=== PATIENT | female | born 1990 | race Two or more races ===

== ENCOUNTER 2018-01-17 11:19 | Emergency (ER) | payer SELFPAY ==
[2018-01-17 11:23] VITALS: BP 100/59; BMI 21.7
--- NOTE | 2018-01-17 11:42 | ED.ABDFE ---
HPI - Time seen Time seen: 11:40 - PCP Primary Care Physician: SHIRLEYD - Complaint Chief Complaint:: PT C/O EPIGASTRIC PAIN WITH NAUSEA, DIZZINESS, AND HEADACHE. PT DESCRIBES HER PAIN A THROBBING TYPE PAIN THAT HAS BEEN GOING ON FOR 3-4 DAYS. PT STATES SHE HAS NOT VOMITTED ANY. - Nurses notes reviewed Nurses Notes Review: Yes - Source History Provided: Patient - Mode of arrival Mode of Arrival: Ambulatory - Timing Onset of Chief Complaint: 01/14/18 Came on: Suddenly - Duration Duration: Constant Duration: Days - Severity Severity: Moderate - Quality Quality: Sharp - Context Onset: Suddenly - Modifying Worsening Factors: Nothing Improving Factors: Nothing - Associated signs and symptoms Associated Signs and Symptoms: Nausea PMH - PMH Past Medical History: No Past Surgical History: No - Family History History of Family Medical Conditions: No - Social History Does any household member use tobacco: No Alcohol Use: None Do you use any recreational Drugs:: No Lives With: Family Lives Where: Home - infectious screening In the last 2 months have you had wt loss of >10#?: NO Have you had fever, night sweats or hemotysis?: No Have you traveled outside the country in the last 6 months?: No Isolation: Standard ROS - Review of Systems Constitutional: No Symptoms Reported Eyes: No Symptoms Reported ENTM: No Symptoms Reported Respiratoy: No Symptoms Reported Cardiovascular: No Symptoms Reported Gastrointestinal/Abdominal: Abdominal Pain Genitourinary: No Symptoms Reported Neurological: No Symptoms Reported Musculoskeletal: No Symptoms Reported Integumentary: No Symptoms Reported Hematologic/Lymphatic: No Symptoms Reported Endocrine: No Symptoms Reported All Other Systems: Reviewed and Negative PE - Vital Signs Vitals: Temperature 98.7 F Pulse Rate 72 Respiratory Rate 18 Blood Pressure 100/59 O2 Sat by Pulse Oximetry 100 - General Limitations: No Limitations General Appearance: Alert - Head Head Exam: Normal Inspection - Eyes Eye exam: Normal Appearance - ENT ENT Exam: Normal External Ear Exam - Neck Neck Exam: Normal Inspection - Chest Chest Inspection: Symmetric Chest Wall Rise - Respiratory Respiratory Exam: Normal Lung Sounds Bilat Respiratory Exam: Bilateral Clear to Auscultation - Cardiovascular Cardiovascular Exam: Regular Rate, Normal Rhythm, Normal Heart Sounds - Abdominal Exam Abdominal Exam: Normal Bowel Sounds, Soft - Rectal Rectal Exam: Deferred - Back Back Exam: Normal Inspection - Extremeties Extremities Exam: Normal Inspection - External Exam: Female: Deferred : Speculum Exam (Female): Deferred : Bimanual Exam (female): Deferred - Neurologic Neurological Exam: Alert, Oriented X3 - Psychiatric Psychiatric Exam: Normal Affect, Normal Mood - Skin Skin Exam: Normal Color MDM - Differential Diagnosis Differential Diagnosis- Considerations may include:: Esophagitis, Gastritus/PUD , Ovarian cyst/torsion, Urinary tract infection, Urolithiasis Course - Treatment Treatment: SEE ORDERS - Education/Counseling Education/Counseling: Patient, Family, Education Educated On: Diagnosis, Needs for Follow Up ROR - Labs Reviewed Laboratory Results Reviewed?: Yes Result Diagrams: 01/17/18 12:00 01/17/18 12:00 Laboratory: WBC 6.2 X10^3/uL (3.6-10.0) 01/17/18 12:00 RBC 4.36 X10^6/uL (3.5-5.4) 01/17/18 12:00 Hgb 13.4 g/dL (12.0-16.0) 01/17/18 12:00 Hct 37.0 % (36.0-47.0) 01/17/18 12:00 MCV 85.0 fL (80.0-100.0) 01/17/18 12:00 MCH 30.7 pg (27.0-34.0) 01/17/18 12:00 MCHC 36.2 g/dL (33.0-35.0) H 01/17/18 12:00 RDW 12.7 % (11.6-16.5) 01/17/18 12:00 Plt Count 270 X10^3/uL (150.0-450.0) 01/17/18 12:00 MPV 6.8 fL (7.4-11.0) L 01/17/18 12:00 Neut % (Auto) 49.9 % (42.0-75.0) 01/17/18 12:00 Lymph % (Auto) 36.0 % (21.0-51.0) 01/17/18 12:00 [place] % (Auto) 11.2 % (0.0-13.0) 01/17/18 12:00 Eos % (Auto) 2.5 % (0.9-2.9) 01/17/18 12:00 Baso % (Auto) 0.4 % (0.2-1.0) 01/17/18 12:00 Neut # (Auto) 3.1 x10^3/uL (2.2-4.8) 01/17/18 12:00 Lymph # (Auto) 2.2 X10^3/uL (1.3-2.9) 01/17/18 12:00 [place] # (Auto) 0.7 x10^3/uL (0.3-0.8) 01/17/18 12:00 Eos # (Auto) 0.2 x10^3/uL (0.0-0.2) 01/17/18 12:00 Baso # (Auto) 0.0 X10^3/uL (0.0-0.1) 01/17/18 12:00 Absolute Nucleated RBC 0.0 /100WBC 01/17/18 12:00 Sodium 138 mmol/L (136-145) 01/17/18 12:00 Corrected Sodium TNP 01/17/18 12:00 Potassium 3.7 mmol/L (3.5-5.1) 01/17/18 12:00 Chloride 104 mmol/L (98-107) 01/17/18 12:00 Carbon Dioxide 25.1 mmol/L (21-32) 01/17/18 12:00 BUN 10 mg/dL (7-18) 01/17/18 12:00 Creatinine 0.71 mg/dL (0.55-1.02) 01/17/18 12:00 Est GFR (MDRD) Af Amer > 60 (>60) 01/17/18 12:00 Est GFR (MDRD) Non-Af > 60 (>60) 01/17/18 12:00 Glucose 96 mg/dL (65-99) 01/17/18 12:00 Calcium 8.7 mg/dL (8.5-10.1) 01/17/18 12:00 Corrected Calcium TNP 01/17/18 12:00 Total Bilirubin 0.30 mg/dL (0.2-1.0) 01/17/18 12:00 AST 15 Units/L (15-37) 01/17/18 12:00 ALT 25 Units/L (12-78) 01/17/18 12:00 Alkaline Phosphatase 44 Units/L (46-116) L 01/17/18 12:00 Total Protein 7.7 g/dL (6.4-8.2) 01/17/18 12:00 Albumin 3.9 g/dL (3.4-5.0) 01/17/18 12:00 Globulin 3.8 g/dL (2.5-4.5) 01/17/18 12:00 Albumin/Globulin Ratio 1.0 Ratio (1.1-2.1) L 01/17/18 12:00 Amylase 53 Units/L (25-115) 01/17/18 12:00 Lipase 127 Units/L (73-393) 01/17/18 12:00 HCG, Qual Positive >10 mIU/mL 01/17/18 12:00 HCG, Quant 234 mIU/mL (0-6) H 01/17/18 12:00 Specimen Type Random urine 01/17/18 11:49 Urine Color Yellow (YELLOW) 01/17/18 11:49 Urine Appearance Clear (CLEAR) 01/17/18 11:49 Urine pH 7.0 (5.0 - 8.0) 01/17/18 11:49 Ur Specific [place] 1.015 (1.000-1.030) 01/17/18 11:49 Urine Protein Negative (NEGATIVE) 01/17/18 11:49 Urine Glucose (UA) Negative (NEGATIVE) 01/17/18 11:49 Urine Ketones Negative (NEGATIVE) 01/17/18 11:49 Urine Occult Blood 1+ (NEGATIVE) 01/17/18 11:49 Urine Nitrite Negative (NEGATIVE) 01/17/18 11:49 Urine Bilirubin Negative (NEGATIVE) 01/17/18 11:49 Urine Urobilinogen Normal (NORMAL) 01/17/18 11:49 Ur Leukocyte Esterase 2+ (NEGATIVE) 01/17/18 11:49 Urine RBC 0-2 /HPF (NONE SEEN) 01/17/18 11:49 Urine WBC 3-5 /HPF (NONE SEEN) 01/17/18 11:49 Ur Squamous Epith Cells Many /HPF (NEGATIVE) 01/17/18 11:49 Amorphous Sediment 1+ /HPF (NEGATIVE) 01/17/18 11:49 Urine Bacteria 1+ /HPF (NEGATIVE) 01/17/18 11:49 Ur Culture Indicated? No/not indicated 01/17/18 11:49 H. pylori IgG Antibody Positive (NEGATIVE) A 01/17/18 12:00 - XRAY XRAY Interpreted by: Radiologist XRAY Findings: REPORT DISCUSS WITH PATIEN. - Diagnosis Discharge Problem: Abdominal pain affecting , Helicobacter pylori ab+ Qualifiers: Weeks of gestation: less than 8 weeks Qualified Code(s): Z3A.01 - Less than 8 weeks gestation of - Discharge Plan Disposition: HOME, SELF-CARE Condition: Stable - Follow ups/Referrals Follow ups/Referrals: BRIGID NEWELL [STAFF PHYSICIAN] - 3 days NFD,None [Primary Care Provider] - 1 week GREGORY NGUYỄN [STAFF PHYSICIAN] - 1 week - Instructions Instructions: Abdominal Pain During , [id number], First Trimester of , [id number], Pelvic Rest, Helicobacter Pylori Antibodies Test Additional Instructions: RETURN TO ED IF WORSE.
[2018-01-17 12:01] LABS: BILIRUBIN,URINE NEGATIVE (NEGATIVE); BLOOD/HEMOGLOBIN,URINE 1+ (NEGATIVE); GLUCOSE, URINE NEGATIVE (NEGATIVE); KETONES,URINE NEGATIVE (NEGATIVE); LEUKOCYTE ESTERASE ,URINE 2+ (NEGATIVE); NITRITES,URINE NEGATIVE (NEGATIVE); PROTEIN,URINE NEGATIVE (NEGATIVE); UROBILINOGEN,URINE NORMAL (NORMAL)
[2018-01-17 12:05] LABS: APPEARANCE,URINE CLEAR (CLEAR); COLOR,URINE YELLOW (YELLOW)
[2018-01-17 12:11] LABS: BASOPHILS % (AUTO) 0.4 % (0.2-1.0); EOSINOPHILS # (AUTO) 0.2 x10^3/uL (0.0-0.2); EOSINOPHILS % (AUTO) 2.5 % (0.9-2.9); HEMOGLOBIN 13.4 g/dL (12.0-16.0); LYMPHOCYTES # (AUTO) 2.2 X10^3/uL (1.3-2.9); MEAN CORPUSCULAR HEMOGLOBIN 30.7 pg (27.0-34.0); MEAN CORPUSCULAR HGB CONC 36.2 g/dL (33.0-35.0); MEAN PLATELET VOLUME 6.8 fL (7.4-11.0); MONOCYTES # (AUTO) 0.7 x10^3/uL (0.3-0.8); MONOCYTES % (AUTO) 11.2 % (0.0-13.0); NEUTROPHILS # (AUTO) 3.1 x10^3/uL (2.2-4.8); NEUTROPHILS % (AUTO) 49.9 % (42.0-75.0); PLATELET COUNT 270 X10^3/uL (150.0-450.0); RED BLOOD COUNT 4.36 X10^6/uL (3.5-5.4); RED CELL DISTRIBUTION WIDTH 12.7 % (11.6-16.5); WHITE BLOOD COUNT 6.2 X10^3/uL (3.6-10.0)
[2018-01-17 12:36] LABS: ALANINE AMINOTRANSFERASE 25 Units/L (12-78); ALBUMIN 3.9 g/dL (3.4-5.0); ALKALINE PHOSPHATASE 44 Units/L (46-116); AMYLASE 53 Units/L (25-115); ASPARTATE AMINO TRANSFERASE 15 Units/L (15-37); BLOOD UREA NITROGEN 10 mg/dL (7-18); CALCIUM 8.7 mg/dL (8.5-10.1); CARBON DIOXIDE 25.1 mmol/L (21-32); CHLORIDE 104 mmol/L (98-107); CREATININE 0.71 mg/dL (0.55-1.02); LIPASE 127 Units/L (73-393); SODIUM 138 mmol/L (136-145); TOTAL PROTEIN 7.7 g/dL (6.4-8.2); eGFR BLACK RACES > 60 (>60); eGFR NON BLACK RACES > 60 (>60)
[2018-01-17 12:40] LABS: AMORPHOUS SEDIMENT,UR 1+ /HPF (NEGATIVE); BACTERIA,URINE 1+ /HPF (NEGATIVE); RBC,URINE 0-2 /HPF (NONE SEEN); SQUAMOUS EPITHELIAL CELL,UR MANY /HPF (NEGATIVE)
[2018-01-17 12:51] LABS: SERUM PREGNANCY TEST, QUAL POSITIVE >10 mIU/mL
--- NOTE | 2018-01-17 16:24 | US ---
History: Positive test and abdominal pain. Exam: Pelvic ultrasound Comparison: None. Technique: Multiple grayscale and color flow Doppler images of the pelvis were obtained. Findings: LMP: December 10, 2017. Quantitative HC dated January 17, 2018. The uterus measures 6.0 x 4.3 x 6.4 cm. No obvious IUP. No evidence for myometrial masses or calcifi cations can be observed. The endometrial stripe is normal in size measuring 13 mm by my measurements . The right and left adnexa are unremarkable. The echotexture of the right and left ovaries are unr emarkable. The right and left ovaries are normal in size. The right ovary measures 2.8 x 1.7 x 2.8 c m. The left ovary measures 3.1 x 2.6 x 3.6 cm. A likely corpus luteum is seen within the left ovary. Small amount of simple appearing pelvic free fluid. IMPRESSION: No obvious gestational sac is seen. This may represent an early IUP. However, threatened and ectopic not entirely excluded. Recommend following serial beta HCGs and OBGYN consultation. Reported By:
== END 2018-01-17 15:59 | disposition home or self-care (01) ==
LOC: ER 11:28
DX: R10.13 Epigastric pain (principal); B96.81 Helicobacter pylori [H. pylori] as the cause of diseases classified elsewhere; Z3A.01 Less than 8 weeks gestation of pregnancy
CPT/HCPCS: 36415; 76801; 80053; 81001; 82150; 83690; 84702; 84703; 85025; 86677; 99282; 99284

== ENCOUNTER 2018-02-02 09:05 | Emergency (ER) | payer SELFPAY ==
[2018-02-02 09:15] VITALS: BP 105/63; BMI 24.7
[2018-02-02] MEDS ORDERED: NS 1000 ML 1,000 ML ONE (09:33)
[2018-02-02] MEDS ORDERED: PHENERGAN INJ 25 MG ONE (09:34)
--- NOTE | 2018-02-02 09:37 | ED.ABDFE ---
HPI - PCP Primary Care Physician: nfd - Complaint Chief Complaint:: pt stated she has been vomiting and having headaches for 2 days. she also stated her LMP was 02/09/18 and she is , but she stated no doctor convermation. - Nurses notes reviewed Nurses Notes Review: Yes - Source History Provided: Patient, Family Member, Other - Mode of arrival Mode of Arrival: Ambulatory - Timing Onset of Chief Complaint: 01/31/18 Came on: Suddenly - Duration Duration: Constant Duration: Days - Location Location: RLQ, LLQ, Suprapubic - Severity Severity: Moderate - Quality Quality: Cramping - Context Onset: Suddenly History of: Current - Modifying Worsening Factors: Nothing Improving Factors: Nothing - Associated signs and symptoms Associated Signs and Symptoms: Nausea, Vomiting PMH - PMH Past Medical History: No Past Surgical History: No - Family History History of Family Medical Conditions: No - Social History Does patient currently use any type of tobacco product: No Have you used tobacco products in the last 12 months: No Type of Tobacco Use: None Does any household member use tobacco: No Alcohol Use: None Do you use any recreational Drugs:: No Lives With: Family Lives Where: Home - infectious screening In the last 2 months have you had wt loss of >10#?: NO Have you had fever, night sweats or hemotysis?: No Have you traveled outside the country in the last 6 months?: No Isolation: Standard ROS - Review of Systems Constitutional: No Symptoms Reported Eyes: No Symptoms Reported ENTM: No Symptoms Reported Respiratoy: Non-Productive Cough Cardiovascular: No Symptoms Reported Gastrointestinal/Abdominal: Abdominal Pain, Nausea, Vomiting Genitourinary: No Symptoms Reported Neurological: No Symptoms Reported Musculoskeletal: No Symptoms Reported Integumentary: No Symptoms Reported Hematologic/Lymphatic: No Symptoms Reported Endocrine: No Symptoms Reported All Other Systems: Reviewed and Negative PE - Vital Signs Vitals: Temperature 98.7 F Pulse Rate 81 Respiratory Rate 16 Blood Pressure 105/63 O2 Sat by Pulse Oximetry 98 - General Limitations: No Limitations General Appearance: Alert - Head Head Exam: Normal Inspection - Eyes Eye exam: Normal Appearance - ENT ENT Exam: Normal External Ear Exam - Neck Neck Exam: Trachea Midline - Chest Chest Inspection: Symmetric Chest Wall Rise - Respiratory Respiratory Exam: Normal Lung Sounds Bilat Respiratory Exam: Bilateral Clear to Auscultation - Cardiovascular Cardiovascular Exam: Regular Rate, Normal Rhythm, Normal Heart Sounds - Abdominal Exam Abdominal Exam: Normal Bowel Sounds, Soft, Tenderness Abdominal Tenderness: RLQ, LLQ, Suprapubic - Rectal Rectal Exam: Deferred - Back Back Exam: Normal Inspection - Extremeties Extremities Exam: Normal Inspection - External Exam: Female: Deferred : Speculum Exam (Female): Deferred : Bimanual Exam (female): Deferred - Neurologic Neurological Exam: Alert, Oriented X3 - Psychiatric Psychiatric Exam: Normal Affect, Normal Mood - Skin Skin Exam: Normal Color MDM - Additional Information Obtained From Additional information provided by: Family - Differential Diagnosis Differential Diagnosis- Considerations may include:: -Threatened, Ectopic , Gastritus/PUD, Urinary tract infection, Urolithiasis ROR - Labs Reviewed Result Diagrams: 02/02/18 09:46 02/02/18 09:46 Laboratory: WBC 7.6 X10^3/uL (3.6-10.0) 02/02/18 09:46 RBC 4.84 X10^6/uL (3.5-5.4) 02/02/18 09:46 Hgb 14.7 g/dL (12.0-16.0) 02/02/18 09:46 Hct 41.4 % (36.0-47.0) 02/02/18 09:46 MCV 85.5 fL (80.0-100.0) 02/02/18 09:46 MCH 30.4 pg (27.0-34.0) 02/02/18 09:46 MCHC 35.6 g/dL (33.0-35.0) H 02/02/18 09:46 RDW 12.7 % (11.6-16.5) 02/02/18 09:46 Plt Count 307 X10^3/uL (150.0-450.0) 02/02/18 09:46 MPV 7.0 fL (7.4-11.0) L 02/02/18 09:46 Neut % (Auto) 69.2 % (42.0-75.0) 02/02/18 09:46 Lymph % (Auto) 22.6 % (21.0-51.0) 02/02/18 09:46 [place] % (Auto) 7.0 % (0.0-13.0) 02/02/18 09:46 Eos % (Auto) 0.7 % (0.9-2.9) L 02/02/18 09:46 Baso % (Auto) 0.5 % (0.2-1.0) 02/02/18 09:46 Neut # (Auto) 5.3 x10^3/uL (2.2-4.8) H 02/02/18 09:46 Lymph # (Auto) 1.7 X10^3/uL (1.3-2.9) 02/02/18 09:46 [place] # (Auto) 0.5 x10^3/uL (0.3-0.8) 02/02/18 09:46 Eos # (Auto) 0.0 x10^3/uL (0.0-0.2) 02/02/18 09:46 Baso # (Auto) 0.0 X10^3/uL (0.0-0.1) 02/02/18 09:46 Absolute Nucleated RBC 0.1 /100WBC 02/02/18 09:46 Sodium 136 mmol/L (136-145) 02/02/18 09:46 Corrected Sodium TNP 02/02/18 09:46 Potassium 3.6 mmol/L (3.5-5.1) 02/02/18 09:46 Chloride 100 mmol/L (98-107) 02/02/18 09:46 Carbon Dioxide 23.4 mmol/L (21-32) 02/02/18 09:46 BUN 14 mg/dL (7-18) 02/02/18 09:46 Creatinine 0.78 mg/dL (0.55-1.02) 02/02/18 09:46 Est GFR (MDRD) Af Amer > 60 (>60) 02/02/18 09:46 Est GFR (MDRD) Non-Af > 60 (>60) 02/02/18 09:46 Glucose 79 mg/dL (65-99) 02/02/18 09:46 Calcium 8.6 mg/dL (8.5-10.1) 02/02/18 09:46 Corrected Calcium TNP 02/02/18 09:46 Total Bilirubin 1.00 mg/dL (0.2-1.0) 02/02/18 09:46 AST 21 Units/L (15-37) 02/02/18 09:46 ALT 61 Units/L (12-78) 02/02/18 09:46 Alkaline Phosphatase 52 Units/L (46-116) 02/02/18 09:46 Total Protein 8.7 g/dL (6.4-8.2) H 02/02/18 09:46 Albumin 4.4 g/dL (3.4-5.0) 02/02/18 09:46 Globulin 4.3 g/dL (2.5-4.5) 02/02/18 09:46 Albumin/Globulin Ratio 1.0 Ratio (1.1-2.1) L 02/02/18 09:46 HCG, Quant 37728 mIU/mL (0-6) H 02/02/18 09:46 Specimen Type Clean catch urine 02/02/18 09:58 Urine Color Yellow (YELLOW) 02/02/18 09:58 Urine Appearance Cloudy (CLEAR) 02/02/18 09:58 Urine pH 5.0 (5.0 - 8.0) 02/02/18 09:58 Ur Specific [place] 1.025 (1.000-1.030) 02/02/18 09:58 Urine Protein 2+ (NEGATIVE) 02/02/18 09:58 Urine Glucose (UA) Negative (NEGATIVE) 02/02/18 09:58 Urine Ketones 4+ (NEGATIVE) 02/02/18 09:58 Urine Occult Blood 3+ (NEGATIVE) 02/02/18 09:58 Urine Nitrite Negative (NEGATIVE) 02/02/18 09:58 Urine Bilirubin Negative (NEGATIVE) 02/02/18 09:58 Urine Urobilinogen 1+ (NORMAL) 02/02/18 09:58 Ur Leukocyte Esterase 2+ (NEGATIVE) 02/02/18 09:58 Urine RBC 3-5 /HPF (NONE SEEN) 02/02/18 09:58 Urine WBC 3-5 /HPF (NONE SEEN) 02/02/18 09:58 Ur Squamous Epith Cells Many /HPF (NEGATIVE) 02/02/18 09:58 Amorphous Sediment 1+ /HPF (NEGATIVE) 02/02/18 09:58 Urine Bacteria 1+ /HPF (NEGATIVE) 02/02/18 09:58 Hyaline Casts Rare /LPF (NEGATIVE) 02/02/18 09:58 Ur Culture Indicated? No/not indicated 02/02/18 09:58 - Diagnosis Discharge Problem: Abdominal pain affecting , Vomiting, Hyperemesis - Discharge Plan Condition: Stable Prescriptions: Promethazine HCl [PHENERGAN TAB 25 MG *] 25 mg PO Q8H PRN #12 tab PRN Reason: Nausea/Vomiting - Follow ups/Referrals Follow ups/Referrals: ERIK RIZZO [STAFF PHYSICIAN] - 1 week NFD,None [Primary Care Provider] - 1 day - Instructions Instructions: Abdominal Pain During , [id number], Nausea and Vomiting, Adult, [id number] Additional Instructions: RETURN TO ED IF WORSE.
[2018-02-02] MEDS ORDERED: NS 1000 ML 1,000 ML IV ONE (09:43)
[2018-02-02] MEDS ORDERED: PHENERGAN INJ 25 MG IV ONE (09:43)
[2018-02-02 10:02] LABS: BASOPHILS % (AUTO) 0.5 % (0.2-1.0); EOSINOPHILS % (AUTO) 0.7 % (0.9-2.9); HEMATOCRIT 41.4 % (36.0-47.0); HEMOGLOBIN 14.7 g/dL (12.0-16.0); LYMPHOCYTES # (AUTO) 1.7 X10^3/uL (1.3-2.9); LYMPHOCYTES % (AUTO) 22.6 % (21.0-51.0); MEAN CORPUSCULAR HEMOGLOBIN 30.4 pg (27.0-34.0); MEAN CORPUSCULAR HGB CONC 35.6 g/dL (33.0-35.0); MEAN CORPUSCULAR VOLUME 85.5 fL (80.0-100.0); MONOCYTES # (AUTO) 0.5 x10^3/uL (0.3-0.8); NEUTROPHILS # (AUTO) 5.3 x10^3/uL (2.2-4.8); NEUTROPHILS % (AUTO) 69.2 % (42.0-75.0); PLATELET COUNT 307 X10^3/uL (150.0-450.0); RED BLOOD COUNT 4.84 X10^6/uL (3.5-5.4); RED CELL DISTRIBUTION WIDTH 12.7 % (11.6-16.5); WHITE BLOOD COUNT 7.6 X10^3/uL (3.6-10.0)
[2018-02-02 10:14] LABS: BILIRUBIN,URINE NEGATIVE (NEGATIVE); BLOOD/HEMOGLOBIN,URINE 3+ (NEGATIVE); GLUCOSE, URINE NEGATIVE (NEGATIVE); KETONES,URINE 4+ (NEGATIVE); LEUKOCYTE ESTERASE ,URINE 2+ (NEGATIVE); NITRITES,URINE NEGATIVE (NEGATIVE); PROTEIN,URINE 2+ (NEGATIVE); UROBILINOGEN,URINE 1+ (NORMAL)
[2018-02-02 10:17] LABS: APPEARANCE,URINE CLOUDY (CLEAR); COLOR,URINE YELLOW (YELLOW)
[2018-02-02 10:18] LABS: ALANINE AMINOTRANSFERASE 61 Units/L (12-78); ALBUMIN 4.4 g/dL (3.4-5.0); ALKALINE PHOSPHATASE 52 Units/L (46-116); ASPARTATE AMINO TRANSFERASE 21 Units/L (15-37); BLOOD UREA NITROGEN 14 mg/dL (7-18); CALCIUM 8.6 mg/dL (8.5-10.1); CARBON DIOXIDE 23.4 mmol/L (21-32); CHLORIDE 100 mmol/L (98-107); CREATININE 0.78 mg/dL (0.55-1.02); SODIUM 136 mmol/L (136-145); TOTAL PROTEIN 8.7 g/dL (6.4-8.2); eGFR BLACK RACES > 60 (>60); eGFR NON BLACK RACES > 60 (>60)
[2018-02-02 10:43] LABS: HCG,QUANTITATIVE 49868 mIU/mL (0-6)
[2018-02-02 10:45] LABS: SQUAMOUS EPITHELIAL CELL,UR MANY /HPF (NEGATIVE)
[2018-02-02 10:46] LABS: AMORPHOUS SEDIMENT,UR 1+ /HPF (NEGATIVE); BACTERIA,URINE 1+ /HPF (NEGATIVE); HYALINE CASTS, URINE RARE /LPF (NEGATIVE)
--- NOTE | 2018-02-02 12:49 | US ---
History: Vomiting, Exam: Ob transvaginal ultrasound Comparison: 01/17/2018 Technique: Multiple grayscale and color flow Doppler images of the pelvis were obtained. Findings: A single intrauterine gestational sac is identified. Within the gestational sac there is a single fet al pole. [place]-rump length measures approximately 3.7 mm, corresponding to an estimated gestational a ge of 6 weeks 0 days. heart tones are detected at 180 beats per minute. A normal appearing yolk sac is identified. The uterus measures 6.6 cm in length by 4.5 cm in height by 6.3 cm in with. No ad nexal mass or free fluid is identified. The left ovary is normal in echotexture. The left ovary measu res 3.4 cm x 2.4 cm x 2.8 cm. The right ovary is normal in echotexture. The right ovary measures 3.4 cm x 1.6 cm x 3.0 cm. IMPRESSION: 1. Single viable intrauterine with estimated gestational age of 6 weeks 0 days and h eart tones detected at 180 beats per minute. Reported By:
== END 2018-02-02 13:14 | disposition home or self-care (01) ==
LOC: ER 09:05
DX: R10.31 Right lower quadrant pain (principal); R11.10 Vomiting, unspecified; Z3A.01 Less than 8 weeks gestation of pregnancy
CPT/HCPCS: 36415; 76801; 80053; 81001; 84702; 85025; 96365; 96374; 99284; A4222; J2550